=== PATIENT | male | born 1935 | race Caucasian/White ===

== ENCOUNTER 2017-02-03 11:10 | Day surgery (SDC) | payer OTHER ==
[~2017-02-03 11:10] MED LIST: DIPRIVAN VIAL ONE; VERSED ONE
[2017-02-03] MEDS ORDERED: NS 500 ML IV 500 ML IV ONE (11:28)
[2017-02-03] MEDS ORDERED: TETRACAINE 0.5% OPHTH 1 DOSE AFFEYE ONE ×2 (11:30→14:05)
[2017-02-03] MEDS ORDERED: VIGAMOX 0.5% OPHTH 1 DOSE AFFEYE ONE ×5 (11:31→14:45)
[2017-02-03] MEDS ORDERED: PROLENSA OPHTH 1 DOSE AFFEYE ONE (11:42)
[2017-02-03] MEDS ORDERED: ALPHAGAN-P OPHTH 1 DOSE AFFEYE ONE (11:43)
[2017-02-03] MEDS ORDERED: MYDRIACIL OPHTH 1 DOSE AFFEYE ONE ×3 (11:44→11:46)
[2017-02-03] MEDS ORDERED: CYCLOGYL 1% OPHTH 1 DOSE OP ONE ×3 (11:44→11:46)
[2017-02-03] MEDS ORDERED: AK-DILATE 2.5% OPHTH 1 DOSE OP ONE ×3 (11:44→11:46)
[2017-02-03] MEDS ORDERED: BETADINE OPHTH SOLN 5% EACHEYE ONE (14:05)
[2017-02-03] MEDS ORDERED: XYLOCAINE-MPF 1% IJ ONE ×2 (14:11→14:26)
[2017-02-03] MEDS ORDERED: DUOVISC IO ONE ×2 (14:11→14:26)
[2017-02-03] MEDS ORDERED: ADRENALINE CHL INJ IJ ONE ×2 (14:11→14:26)
[2017-02-03] MEDS ORDERED: BSS OPHTH (PLAIN) 500 ML with VANCOMYCIN HCL 500 MG VIAL 25 MG, ADRENALINE CHL INJ 1 MG IR ONE ×6 (14:12)
[2017-02-03] MEDS ORDERED: VISCOAT 0.5 ML IO ONE (14:37)
[2017-02-03 15:16] VITALS: BP 121/63
== END 2017-02-03 15:12 | disposition home or self-care (01) ==
LOC: SURG1 11:10
PROVIDERS: ATTEND Ophthalmology
PROC: 08DJ3ZZ Extraction of Right Lens, Percutaneous Approach (ICD-10-PCS; principal; 2017-02-03 12:45)
PROC: 08RJ3JZ Replacement of Right Lens with Synthetic Substitute, Percutaneous Approach (ICD-10-PCS; principal; 2017-02-03 12:45)
DX: H25.11 Age-related nuclear cataract, right eye (principal); H25.011 Cortical age-related cataract, right eye; H52.221 Regular astigmatism, right eye
CPT/HCPCS: 99100; V2797; A4217; J0170; J2250; J3370; J3490

== ENCOUNTER 2017-06-09 08:35 | Day surgery (SDC) | payer OTHER ==
[2017-06-09] MEDS ORDERED: TETRACAINE 0.5% OPHTH 1 DOSE AFFEYE ONE ×4 (09:33→13:15)
[2017-06-09] MEDS ORDERED: VIGAMOX 0.5% OPHTH 1 DOSE AFFEYE ONE ×5 (09:35→13:31)
[2017-06-09] MEDS ORDERED: NS 500 ML IV 500 ML IV ONE (09:38)
[2017-06-09] MEDS ORDERED: PROLENSA OPHTH 1 DOSE AFFEYE ONE (09:46)
[2017-06-09] MEDS ORDERED: ALPHAGAN-P OPHTH 1 DOSE AFFEYE ONE (09:48)
[2017-06-09] MEDS ORDERED: CYCLOGYL 1% OPHTH 1 DOSE OP ONE ×4 (09:50→10:10)
[2017-06-09] MEDS ORDERED: MYDRIACIL OPHTH 1 DOSE AFFEYE ONE ×4 (09:55→10:10)
[2017-06-09] MEDS ORDERED: AK-DILATE 2.5% OPHTH 1 DOSE OP ONE ×4 (09:55→10:10)
[2017-06-09] MEDS ORDERED: DIPRIVAN VIAL ONE (10:10)
[2017-06-09] MEDS ORDERED: ADRENALINE CHL INJ IJ ONE ×2 (12:59→13:15)
[2017-06-09] MEDS ORDERED: BETADINE OPHTH SOLN 5% EACHEYE ONE (12:59)
[2017-06-09] MEDS ORDERED: XYLOCAINE-MPF 1% IJ ONE ×2 (12:59→13:15)
[2017-06-09] MEDS ORDERED: DUOVISC IO ONE ×2 (13:00→13:15)
[2017-06-09] MEDS ORDERED: BSS OPHTH (PLAIN) 500 ML with VANCOMYCIN HCL 500 MG VIAL 25 MG, ADRENALINE CHL INJ 1 MG IR ONE ×6 (13:01)
[2017-06-09 13:51] VITALS: BP 155/67
== END 2017-06-09 13:52 | disposition home or self-care (01) ==
LOC: SURG1 08:35
PROVIDERS: ATTEND Ophthalmology
PROC: 08DK3ZZ Extraction of Left Lens, Percutaneous Approach (ICD-10-PCS; principal; 2017-06-09 19:45)
PROC: 08RK3JZ Replacement of Left Lens with Synthetic Substitute, Percutaneous Approach (ICD-10-PCS; principal; 2017-06-09 19:45)
DX: H25.12 Age-related nuclear cataract, left eye (principal); H25.012 Cortical age-related cataract, left eye; H52.222 Regular astigmatism, left eye
CPT/HCPCS: V2797; A4217; J0170; J3370; J3490